=== PATIENT | male | born 1985 | race Two or more races ===

== ENCOUNTER 2023-09-20 22:35 | Emergency (ER) | payer SELFPAY ==
[~2023-09-20] VITALS: Ht 182.9 cm; Wt 131.8 kg
[2023-09-21 07:07] VITALS: BP 140/72; PULSE 87; RESP 20; TEMP 98.2; O2SAT 97
== END 2023-09-21 07:10 | disposition home or self-care (01) ==
LOC: ER 22:35
DX: I83.93 Asymptomatic varicose veins of bilateral lower extremities (principal); M25.571 Pain in right ankle and joints of right foot